=== PATIENT | male | born 1960 | race Caucasian/White ===

== ENCOUNTER 2016-10-10 22:04 | Emergency (ER) | payer OTHER ==
[~2016-10-10] VITALS: Ht 172.7 cm; Wt 50.9 kg
[~2016-10-10 22:04] MED LIST: ABILIFY15 MG OR; AMOXICILLIN500 M1 OR; ANTIVERT OR; ANTIVERT PO; BACTRIM DS1 TAB OR; BL VIT B-12500 MCG PO; CEPHALEXIN500 MG PO; CLONAZEP ODT1 MG OR; DILANTIN100 MG OR; DILANTIN100 MG PO; EC ASPIRIN325 MG OR; FLUOXETINE20 MG OR; FOLIC ACID1 M1 PO; FOLIC ACID1 MG PO; IPRATROPIU0.5 MG/3 M NEB; K-TAB20 MEQ PO; MAGNESIUM250 M1 PO; MOTRIN800 MG PO; PERCOCET 5/325M1 TAB OR; POTASSIUM CHLO20 ME1 PO; PREDNISONE10 MG PO; PREVACID30 M2 PO; PROAIR HFA IN; PROZAC10 MG PO; PROZAC20 MG PO; REGLAN10 MG OR; REMERON15 MG PO; RISPERIDONE2 MG PO; SPIRIVA IN; TAB-A-VITE W/1 COMBO PO; THIAMINE HCL100 MG PO; VERAPAMIL120 MG OR; VERAPAMIL40 MG OR; VISTARIL25 MG OR; VISTARIL50 MG PO; ZITHROMAX250 MG PO; ZYPREXA OR; ZYPREXA ZYDI20 MG OR
[2016-10-10 23:02] LABS: HEMATOCRIT 36.1 % (39.0-50.0); HEMOGLOBIN 12.7 g/dl (14.0-18.0); IMMATURE GRANULOCYTES 0.9 % (0.0-1.0); MEAN CELL VOLUME 91.4 fL CALC (80.0-100.0); MEAN CORPUSCULAR HGB 32.2 pG CALC (26.0-32.0); MEAN CORPUSCULAR HGB CONC 35.2 g/L CALC (32.0-36.0); NEUT# 3.81 thou/uL (1.82-7.42); RED BLOOD COUNT 3.95 mill/uL (4.70-6.10); RED CELL DISTRI WIDTH 13.4 % (11.5-15.5)
[2016-10-10 23:08] LABS: ALBUMIN 3.6 g/dL (3.2-5.0); ALKALINE PHOSPHATASE 73 u/l (38-126); ANION GAP 20 (6-22 (CALC)); BILIRUBIN, TOTAL 0.5 mg/dL (0.0-1.4); BUN 5 mg/dL (9-20); BUN/CREATININE RATIO 7 (12-20 (CALC)); CARBON DIOXIDE 19 mmol/l (22-30); CHLORIDE 96 mmol/l (95-108); CREATININE 0.6 mg/dL (0.7-1.3); ETHYL ALCOHOL 248 mg/dl (0-30); GFR > 60 ML/MIN (>=60 (CALC)); GFR FOR AFR.AMER. > 60 ML/MIN (>=60 (CALC)); GLUCOSE 87 mg/dL (75-110); POTASSIUM 3.2 mmol/l (3.5-5.1); SGOT/AST 45 u/l (17-59); SGPT/ALT 34 u/l (21-72); SODIUM 132 mmol/l (137-146); TOTAL PROTEIN 6.5 g/dL (6.3-8.2)
[2016-10-11 01:06] LABS: URINE BILIRUBIN - DIPSTICK NEGATIVE (NEGATIVE); URINE BLOOD DIPSTICK NEGATIVE (NEGATIVE); URINE CLARITY SLIGHT CLOUDY; URINE COLOR YELLOW; URINE GLUCOSE - DIPSTICK NEGATIVE (NEGATIVE); URINE KETONE NEGATIVE (NEGATIVE); URINE LEUK ESTERASE NEGATIVE (NEGATIVE); URINE NITRITE - DIPSTICK NEGATIVE (Negative); URINE PROTEIN - DIPSTICK NEGATIVE (NEG-TRACE); URINE SPECIFIC GRAVITY <=1.005; URINE UROBILINOGEN - DIPSTICK 0.2 E.U./dL (0.2)
[2016-10-11 01:11] LABS: BARBITURATES NEGATIVE (NEGATIVE); COCAINE NEGATIVE (NEGATIVE); METHADONE NEGATIVE (NEGATIVE); OXCYCODONE NEGATIVE (NEGATIVE); TETRAHYDROCANNABIONOL NEGATIVE (NEGATIVE); TRICYLIC ANTIDEPRESSANTS NEGATIVE (NEGATIVE)
[2016-10-11] MEDS ORDERED: NAPROSYN500 MG PO (06:51)
[2016-10-11 08:28] VITALS: BP 107/68
== END 2016-10-11 08:28 | disposition home or self-care (01) | DRG 897 ==
LOC: ED 22:04
PROVIDERS: Emergency Medicine
DX: F10.229 Alcohol dependence with intoxication, unspecified (principal); D32.9 Benign neoplasm of meninges, unspecified; Y90.8 Blood alcohol level of 240 mg/100 ml or more; F17.210 Nicotine dependence, cigarettes, uncomplicated; W18.30XA Fall on same level, unspecified, initial encounter; Y92.009 Unspecified place in unspecified non-institutional (private) residence as the place of occurrence of the external cause

== ENCOUNTER 2017-01-13 06:42 | Inpatient (IN) | payer OTHER ==
[~2017-01-13] VITALS: Ht 172.7 cm; Wt 54.4 kg
[~2017-01-13 06:42] MED LIST changes: +NAPROSYN500 MG PO
--- NOTE | 2017-01-13 06:42 | NUR ---
PT TO ROOM 13 VIA EMS. REPOSITIONS SELF ANSWERS QUESTIONS APPROPRIATELY. VSS.
[2017-01-13 07:13] LABS: HEMOGLOBIN 13.2 g/dl (14.0-18.0); MEAN CELL VOLUME 91.8 fL CALC (80.0-100.0); MEAN CORPUSCULAR HGB 31.9 pG CALC (26.0-32.0); MEAN CORPUSCULAR HGB CONC 34.7 g/L CALC (32.0-36.0); NEUT# 5.02 thou/uL (1.82-7.42); RED BLOOD COUNT 4.14 mill/uL (4.70-6.10); RED CELL DISTRI WIDTH 13.3 % (11.5-15.5)
[2017-01-13 07:34] LABS: ALBUMIN 3.8 g/dL (3.2-5.0); ALKALINE PHOSPHATASE 75 u/l (38-126); ANION GAP 17 (6-22 (CALC)); BILIRUBIN, TOTAL 1.2 mg/dL (0.0-1.4); BUN 3 mg/dL (9-20); BUN/CREATININE RATIO 6 (12-20 (CALC)); CARBON DIOXIDE 22 mmol/l (22-30); CHLORIDE 90 mmol/l (95-108); CREATININE 0.5 mg/dL (0.7-1.3); GFR > 60 ML/MIN (>=60 (CALC)); GFR FOR AFR.AMER. > 60 ML/MIN (>=60 (CALC)); GLUCOSE 117 mg/dL (75-110); POTASSIUM 3.5 mmol/l (3.5-5.1); SGOT/AST 43 u/l (17-59); SGPT/ALT 42 u/l (21-72); SODIUM 125 mmol/l (137-146); TOTAL PROTEIN 6.4 g/dL (6.3-8.2)
[2017-01-13 07:36] LABS: ETHYL ALCOHOL < 10 mg/dl (0-30)
--- NOTE | 2017-01-13 07:40 | NUR ---
PATIENT RESTING DENIES ANY PAIN OR DISCOMFORT AT THIS TIME. PATIENT HAS NO SEIZURE LIKE ACTIVITY AT THIS TIME
[2017-01-13 07:45] LABS: MYOGLOBIN 168 ng/mL (0 - 121)
[2017-01-13 08:23] LABS: PHENYTOIN (DILANTIN) < 3 ug/mL (10 - 20)
--- NOTE | 2017-01-13 08:40 | NUR ---
PATIENT RESTING AWAITING LAB RESULTS PATIENT DENIES ANY PAIN OR DISCOMFORT AT THIS TIME
[2017-01-13 08:47] LABS: URINE BILIRUBIN - DIPSTICK NEGATIVE (NEGATIVE); URINE BLOOD DIPSTICK NEGATIVE (NEGATIVE); URINE CLARITY CLEAR; URINE COLOR YELLOW; URINE GLUCOSE - DIPSTICK NEGATIVE (NEGATIVE); URINE KETONE TRACE mg/dL (NEGATIVE); URINE LEUK ESTERASE NEGATIVE (NEGATIVE); URINE NITRITE - DIPSTICK NEGATIVE (Negative); URINE PH 7.5 (4.5-8.0); URINE PROTEIN - DIPSTICK NEGATIVE (NEG-TRACE); URINE UROBILINOGEN - DIPSTICK 0.2 E.U./dL (0.2)
[2017-01-13 08:49] LABS: BARBITURATES NEGATIVE (NEGATIVE); COCAINE NEGATIVE (NEGATIVE); METHADONE NEGATIVE (NEGATIVE); OXCYCODONE NEGATIVE (NEGATIVE); TETRAHYDROCANNABIONOL NEGATIVE (NEGATIVE); TRICYLIC ANTIDEPRESSANTS NEGATIVE (NEGATIVE)
--- NOTE | 2017-01-13 09:04 | NUR ---
UNABLE TO SCAN MEDICATIONS NO BAR CODE FROM MEDICATION MIXED FROM PHARMACY. REPORT CALLED TO MED SURG
--- NOTE | 2017-01-13 09:15 | NUR ---
PT ARRIVED VIA STRETCHER ACCOMPANIED BY STAFF. IV SITE WAS IN PLACE. PT WAS INSTRUCTED NOT TO GET OUT OF BED, CONTINUE TO OSBERVE AND MONITOR. PT WAS IN RM 263 AND THEN WAS MOVED TO RM 270 AT 11AM DUE TO GETTING OUT OF BED,
--- NOTE | 2017-01-13 11:00 | NUR ---
PT WAS MOVED TO ROOM 270 VIA BED WITH IV SITE IN PLACE. ALL BELONGINGS.
[2017-01-13 12:00] VITALS: BP 118/79
--- NOTE | 2017-01-13 14:14 | NUR ---
PT ATTEMPTS TO GET OUT OF BED REINFORMED TO GO BACK IN THE BED. IV SITE BECAME UNDONE AND REPLACED/ CONTINUE TO OBSERVE AND MONITOR.
--- NOTE | 2017-01-13 16:02 | NUR ---
FRIEND LORI WANTING TO CHECK ON PT. INFORMED HE WAS STABLE AND IN THE BED. AND HE WAS ASKING FOR THE CIGARS "SHE STARTED TO LAUGH".
[2017-01-13 16:48] VITALS: BP 87/57
--- NOTE | 2017-01-13 17:30 | NUR ---
PT'S BED ALARM HAD BEEN ON. PT WAS RELAXING IN BED. ALL OF A SUDDEN HEARD A NOISE COMING FROM THE ROOM. WENT TO CHECK ON PT, HE HAD PULLED THE DOOR OFF THE CABINET TO THE TV LOOKING FOR THE REFRIGERATOR, AND HIS IV LINE WAS BROKE APART. IV NEEDED TO BE CHANGED. DR. VILLAFUERTE ON THE UNIT INFORMED AT THAT TIME. UPON INSPECTION BACK OF HIS LEGS ARE PINK AND WAS ESCORTED TO GET A SHOWER TO GET THE BLOOD OFF.
--- NOTE | 2017-01-13 18:00 | NUR ---
NEW IV SITE PLACED IN LFA WITH 1 ATTEMPT AND PT TOLERATED WELL. INQUIRING IF I HAVE ANY MONEY, OR A CIGARETTE. INFORMED THAT HE WAS IN THE HOSPITAL AND NO SMOKING ALSO NO MONEY.
--- NOTE | 2017-01-13 18:00 | NUR ---
PT GOT OUT OF BED AND THE ALARM WENT OFF, IV SITE WAS PULLED OUT AT 1830 CONTINUE TO OBSERVE AND MONITOR.
--- NOTE | 2017-01-13 18:30 | NUR ---
ALARM ON THE BED AND PT GOT OUT OF BED PULLING IV OUT. RETAKEN BACK TO BED AND EXPLAINED TO PT RE: NOT GETTING OUT OF BED AND THAT IV WAS OUT WILL NEED TO RESTART IV. INFORMED DR. VILLAFUERTE RE: IV OUT , WILL RESTART. INFORMED LIQUEFIED [employer] OPERATOR.
--- NOTE | 2017-01-13 19:15 | NUR ---
PT CONTINUES TO SIT UP IN THE BED AND WANTING A CIGARETTE AND MONEY TO GET HIS SMOKES. ALSO ASKING IF WE HAD HIS CERTIFICATE, WALLET AND CLOTHING. INFORMED THAT THE CLOTHES ARE IN A BAG , HAVE NOT CHECKED TO SEE IF THE WALLET WAS IN THERE OR NOT. REINSTRUCTED PT USE OF CALL CRAWFORD SYSTEM. CONTINUE TO OSBERVE AND MONITOR.
--- NOTE | 2017-01-13 19:30 | NUR ---
PATIENT IN BED AT THIS TIME-RESTLESS AND TRYING TO GET OOB. SITTER AT BEDSIDE FOR PATIENT SAFETY. PATIENT WITHOUT ANY IV ACCESS AT THIS TIME. WILL RESTART IV SITE PAYTON. SEIZURE PRECAUTIONS IN PLPACE AND SIDERAILS ARE PADDED. CALL LIGHT IN REACH. WILL CONT TO MONITOR.
--- NOTE | 2017-01-13 20:20 | NUR ---
NEW IV SITE TO RIGHT FOREARM-#[id number] WITH GOOD BLOOD RETURN. PATIENT CONT TO BE EXTREMELY RESTLESS AND APPEARS TO BE HALLUCINATING GRABBING AT THINGS IN THE AIR THAT ARE NOT THERE. PATIENT IS ORIENTED TO PERSON ONLY AT THIS TIME. DOES NOT KNOW WHERE HE IS OR WHY. ATTEMPTED TO REORIENT THE PATIENT WITH LITTLE SUCCESS. PATIENT MEDICATED WITH ATIVAN 1MG IVP ORDERED. PATIENT INCONT OF BOWEL AND BLADDER. PATIENT WITH LARGE RED SWOLLEN AREA TO LEFT BUTTOCKS. AREA IS NOT DRAINING. PHOTO TAkEN AND PLACED IN CHART. SITTER AT BEDSIDE FOR PATIENT SAFETY. CALL LIGHT IN REACH. WILL CONT TO MONITOR.
[2017-01-13 20:34] VITALS: BP 95/58
--- NOTE | 2017-01-13 23:00 | NUR ---
PATIENT CONT TO BE CONFUSED AND RESTLESS-STILL PICKING AT THE AIR AND WANTING TO GO TO THE STORE. INCONT OF BOWEL AND BLADDER AGAIN. PERICARE DONE WITH SOAP AND H20 AND LINENS CHANGED. SITTER REMAINS AT BEDSIDE FOR PATIENT SAFETY. WILL CONT TO MONITOR.
[2017-01-13 23:48] VITALS: BP 100/65
--- NOTE | 2017-01-14 00:02 | NUR ---
NEW IV SITE STARTED TO RIGHT WRIST-GOOD BLOOD RETURN. EMS SITE D/C. TURNED AND REPOSITIONED ON SIDE. CALL LIGHT IN REACH. WILL CONT TO MONITOR.
--- NOTE | 2017-01-14 02:25 | NUR ---
PATIENT CONTINUES TO BE AGITATED AND PULLING AT RAILS AND THRASHING IN BED. CONT TO WANT TO SMOKING AND "GO PAY THE WATER BI;;". ATTEMPTED TO REORIENT PATIENT WITH LITTLE SUCCESS. PATIENT MEDICATED WITH ATIVAN 1MG IVP ORDERED. PATIENT CONT TO BE INCONT OF BOWEL AND BLADDERX3 SO FAR TONIGHT. SITTER AT BEDSIDE FOR PATIENT SAFETY. WILL CONT TO MONITOR.
[2017-01-14 04:00] VITALS: BP 116/79
--- NOTE | 2017-01-14 04:30 | NUR ---
PATIENT HAS BEEN LESS AGITATED SINCE LAST MEDS GIVEN. STILL IS SLIGHT RESTLESS BUT NOT BAD EARLIER. SITTER REMAINS AT BEDSIDE. SEIZURE PRECAUTIONS IN PLACE WITH PADDED RAILS. NO SIEZURE ACTIVITY NOTED AT THIS TIME. CALL LIGHT AND BED ALARM IN PLACE. WILL CONT TO MONITOR.
[2017-01-14 05:58] LABS: HEMATOCRIT 34.7 % (39.0-50.0); HEMOGLOBIN 12.1 g/dl (14.0-18.0); IMMATURE GRANULOCYTES 0.8 % (0.0-1.0); MEAN CORPUSCULAR HGB 32.4 pG CALC (26.0-32.0); MEAN CORPUSCULAR HGB CONC 34.9 g/L CALC (32.0-36.0); NEUT# 2.92 thou/uL (1.82-7.42); RED BLOOD COUNT 3.73 mill/uL (4.70-6.10); RED CELL DISTRI WIDTH 13.2 % (11.5-15.5)
[2017-01-14 06:09] LABS: ALKALINE PHOSPHATASE 64 u/l (38-126); ANION GAP 11 (6-22 (CALC)); BILIRUBIN, TOTAL 0.9 mg/dL (0.0-1.4); BUN < 2 mg/dL (9-20); CALCIUM 8.5 mg/dL (8.4-10.2); CARBON DIOXIDE 24 mmol/l (22-30); CHLORIDE 97 mmol/l (95-108); CREATININE 0.4 mg/dL (0.7-1.3); GFR > 60 ML/MIN (>=60 (CALC)); GFR FOR AFR.AMER. > 60 ML/MIN (>=60 (CALC)); GLUCOSE 94 mg/dL (75-110); POTASSIUM 2.8 mmol/l (3.5-5.1); SGOT/AST 36 u/l (17-59); SGPT/ALT 34 u/l (21-72); SODIUM 130 mmol/l (137-146); TOTAL PROTEIN 5.6 g/dL (6.3-8.2)
[2017-01-14 08:05] VITALS: BP 90/56
--- NOTE | 2017-01-14 08:34 | NUR ---
PT.IN BED BEING CLEANED OF BM INCONTINENCE AT THIS TIME,ASSISTED TO BSC AND CLEANED W/BEDDING CHANGE. PT.CLEANED OF LARGE, LOOSE YELLOW BM AND 480CC OF CLEAR YELLOW URINE. V/S ASSESSED AND PT.MORNING MEDICATIONS ADMINISTERED. PT.BACK TO BED. OFFERED BREAKFAST, STATED HE "IS NOT HUNGRY." AID IS W/PT.AND GOING TO TRY AND HELP HIM EAT. PT.CONFUSED, ONLY ALERT TO SELF. INTAKE OF ONE COMPLETE APPLE JUICE WHILE TAKING MEDICATIONS
--- NOTE | 2017-01-14 13:39 | NUR ---
PT.MEDICATED W/MEDICATIONS ORDERED AND IV FLUIDS CHANGED ORDERED; SITTER AT BS, ASSISTED BOOSTING PT., AID IS FEEDING PT.APPLE SAUCE AT THIS TIME
--- NOTE | 2017-01-14 14:15 | NUR ---
PT.SLEEPING AT THIS TIME, IV FLUIDS CHANGED ORDERED AND PT.MEDICATED W/MEDICATIONS ORDERS PROVIDE; SITTER AT BEDSIDE; IV FLUSHED AND PT.REPOSITIONED AND PROVIDED PO WATER
[2017-01-14 15:37] VITALS: BP 103/70
--- NOTE | 2017-01-14 15:50 | NUR ---
PT.IS UPRIGHT IN BED AT THIS TIME EATING HIS MEAL, SITTER IS ASSISTING PT.EAT
--- NOTE | 2017-01-14 16:43 | NUR ---
PT AGREED FOR ME TO SHAVE HIS FACE.
--- NOTE | 2017-01-14 16:53 | NUR ---
PT.IS TRYING TO GET OUT OF BED, WANTING TO GO HOME, WANTING A CIGARETTE, STARTING TO TUG AT IV TUBING. TUBING IS TAPED WELL AND WRAPPED UP ARM TO PRTECT. PT.MEDICATED W/LIBRIUM AT THIS TIME AND BEING OFFERED A SNACK
--- NOTE | 2017-01-14 20:00 | NUR ---
PATIENT CONT TO BE RESTLESS AND MOVING ABOUT THE BED. CONT TO BE ORIENTED TO PERSON ONLY. PATIENT ATTEMPTING TO CLIMB OVER THE SIDERAILS THAT ARE PADDED FOR SEIZURE PRECAUTIONS. NO SEIZURE ACTIVITY HAS BEEN NOTED BUT PATIENT IS AGITATED AND WANTS A CIGARETTE ALONG WITH ALOT OF OTHER INAPPROPRIATE REQESTS. WANTS TO GO HOME AND WANTS TO PAY THE WATER BILL ECT. SEVERAL ATTEMPTS MADE TO TRY TO REORIENT PATIENT WITH NO SUCCESS. SITTER IS AT BEDSIDE FOR PATIENT SAFETY. PATIENT WITH IV SITE TO RIGHT FOREARM WITH IVF NS WITH 20MEQ KCL IN PROGRESS AT 100CC/HR. SITE APPEARS HEALTHY AT THIS TIME. PATIENT CONT TO LARGE RED SWOLLEN AREA TO LEFT BUTTOCK-APPEARS PAINFUL AND PATIENT DOES TRY TO POSITION HIMSELF OFF OF IT. NO DRAINAGE AT THIS TIME. CALL LIGHT IN REACH. WILL CONT TO MONITOR.
[2017-01-14 20:11] VITALS: BP 112/76
--- NOTE | 2017-01-14 21:00 | NUR ---
PATIENT CONT TO BE RESTLESS AND AGITATED-THRASHING ABOUT IN THE BED. INCONT OF URINE. LINENS CHANGED. PATIENT MEDICATED WITH DILANTIN AND VIBRAMYCIN ORDERED. PATIENT MEDICATED FOR AGITATION WITH ATIVAN 1MG IVP ORDERED. SITTER AT BEDSIDE. CALL LIGHT IN REACH. WILL CONT TO MONITOR.
[2017-01-14 23:47] VITALS: BP 126/82
--- NOTE | 2017-01-15 | NUR ---
PATIENT CONT TO BE RESTLESS. MEDICATED WITH LIBRIUM ORDERD. LEFT BUTTOCKS WOUND IS NOW DRAINING MODERATE AMT OF THICK SEROPURULENT FOUL SMELLING DRAINAGE. WOUND CULTURE OBTAINED AND SENT TO LAB. DRESSING APPLIED-TELFA COVERED WITH 4X4 AND SECURED WITH PAPER TAPE. SITTER REMAINS AT BEDSIDE. WILL CONT TO MONITOR.
--- NOTE | 2017-01-15 03:35 | NUR ---
MONITORING PATIENT AT BEDSIDE. CONT TO BE CONFUSED AND ATTEMPTING TO GET OOB. ASKING FOR CIGARETTES AMD WANTS TO GO HOME. PATIENT ASSISTED WITH 1 CONTAINER OF ICE CREAM AND DRANK APPROX 1/2 GLASS OF H20. STILL IS RESTLESS. ATTEMPT TO REORIENT PATIENT WITH LITTLE SUCCESS. STILL ORIENTED TO ERSON ONLY. SIDE RAILS PADDED AND SEIZURE PRECAUTIONS IN PLACE. PATIENT STATES THAT HE HAD TO "PEE' ASSISTED WITH URINAL AND VOIDED 100CC OF KHADAR URINE. REMAINING AT BEDSIDE FOR PATIENT SAFETY. CALL LIGHT IN REACH. WILL CONT TO MONITOR.
--- NOTE | 2017-01-15 05:31 | NUR ---
PATIENT SLEEPING AT THIS TIME WITH STAFF AT BEDSIDE FOR PATIENT SAFETY. SIDERAILS PADDED FOR SEIZURE PRECAUTIONS. NO SIEZURE ACTIVITY NOTED TONIGHT. WILL CONT TO MONITOR.
[2017-01-15 05:56] LABS: ANION GAP 11 (6-22 (CALC)); BUN 2 mg/dL (9-20); BUN/CREATININE RATIO 5 (12-20 (CALC)); CARBON DIOXIDE 24 mmol/l (22-30); CHLORIDE 100 mmol/l (95-108); CREATININE 0.4 mg/dL (0.7-1.3); GFR > 60 ML/MIN (>=60 (CALC)); GFR FOR AFR.AMER. > 60 ML/MIN (>=60 (CALC)); GLUCOSE 86 mg/dL (75-110); POTASSIUM 3.4 mmol/l (3.5-5.1); SODIUM 131 mmol/l (137-146)
--- NOTE | 2017-01-15 09:15 | NUR ---
ASSESSMENT IS COMPLTED: PT HAS AN ODOR. DRESSING ON BUTTOCK IS CDI. IV SITE WAS WORKIGN WITH OUT ANY INCIDENT. CONTINUE TO OSBERVE AND MONITOR.
--- NOTE | 2017-01-15 10:00 | NUR ---
PT BEGAN TAKING OFF ARM BAND. THEN IV SITE WAS RECHECKED AND HAD SOME PUFFINESS AT THE SITE. D/C'D WILL RESTART.
[2017-01-15 10:52] VITALS: BP 114/72
--- NOTE | 2017-01-15 12:30 | NUR ---
ATTEMPTED TO START IV AND IT SWELLED. WILL RETRY AGAIN. IV SITE THEN STARTED BY KIRIT SCHUSTER. IN LFA WITH #20. CONTINUE TO OBSERVE AND MONITOR.
[2017-01-15 15:47] VITALS: BP 100/60; BP 90/60
--- NOTE | 2017-01-15 16:15 | NUR ---
PT IS RELAXING IN BED WITH NO DISTRESS NOTED, IV SITE IS FREE FROM REDNESS OR EDEMA
[2017-01-15 18:08] VITALS: BP 96/52
[2017-01-15 19:00] VITALS: BP 103/72
--- NOTE | 2017-01-15 19:30 | NUR ---
PATIENT RESTING IN BED IN POSITION AND APPEARS SLEEPING AT THIS TIME WITH EYES CLOSED. IVF NS 20 KCL PATENT AND INFUSING AT 100CC/HR ORDERED. IV SITE TO LEFT FOREARM APPEARS HEALTHY AT THIS TIME. SIDERAILS PADDED FOR SEIZURE PRECAUTIONS. BED ALARM IN PLACE FOR PATIENT SAFETY. CALL LIGHT IN REACH. WILL CONT TO MONITOR
[2017-01-16] VITALS: BP 88/54
--- NOTE | 2017-01-16 | NUR ---
PATIENT CONT TO SLEEPING AT THIS TIME. PATIENT HAS NOT ATTEMPTED TO GET OOB YET TONIGHT. BED ALARM IN PLACE FOR PATIENT SAFETY. LIBRIUM HELD DUE TO LOC. CALL LIGHT IN REACH. WILL CONT TO MONITOR.
[2017-01-16 04:15] VITALS: BP 113/77
--- NOTE | 2017-01-16 04:30 | NUR ---
PATIENT AWAKE AND ALERT AND ORIENTED TO PERSON AND PLACE. PATIENT KNOWS HE IS AT [facility] AND THAT HE NEEDS HIS DILANTIN TO PREVENT HIM FROM HAVING SEIZURES. PATIENT REASSURED THAT HE WAS GETTING HIS DILANTIN HERE AT THE HOSPITAL. PATIENT MIN ASSIST TO GET OOB AND AMB WITH WALKER TO BR FOR SHOWER. PATIENT ASSISTED WITH SHOWER AND SHAMPOOING HIS HAIR. ABCESS TO LEFT BUTTOCK IS DRAINING SMALL AMT OF SEROPURULENT FOUL SMELLING DRAINAGE. SURROUNDING AREA IS PAINFUL. PATIENT ASSISTED BACK TO BED-FOLLOWING DIRECTIONS APPROPRIATELY. PHOTO OF LEFT BUTTOCKS WOUND TAKEN AND PLACED IN CHART. TELFA AND 4X4 DRESSING APPLIED TO LEFT BUTTOCKS AND SECURED WITH PAPER TAPE. PATIENT RESTING IN BED POSITIONED ON HIS SIDE. BED ALARM IN PLACE FOR PATIENT SAFETY. CALL LIGHT IN REACH. WILL CONT TO MONITOR.
[2017-01-16 05:44] LABS: HEMATOCRIT 38.6 % (39.0-50.0); HEMOGLOBIN 12.8 g/dl (14.0-18.0); MEAN CELL VOLUME 93.9 fL CALC (80.0-100.0); MEAN CORPUSCULAR HGB 31.1 pG CALC (26.0-32.0); MEAN CORPUSCULAR HGB CONC 33.2 g/L CALC (32.0-36.0); NEUT# 2.82 thou/uL (1.82-7.42); RED BLOOD COUNT 4.11 mill/uL (4.70-6.10); RED CELL DISTRI WIDTH 13.4 % (11.5-15.5)
[2017-01-16 06:02] LABS: ANION GAP 11 (6-22 (CALC)); BUN 5 mg/dL (9-20); BUN/CREATININE RATIO 10 (12-20 (CALC)); CARBON DIOXIDE 23 mmol/l (22-30); CHLORIDE 102 mmol/l (95-108); CREATININE 0.5 mg/dL (0.7-1.3); GFR > 60 ML/MIN (>=60 (CALC)); GFR FOR AFR.AMER. > 60 ML/MIN (>=60 (CALC)); GLUCOSE 83 mg/dL (75-110); POTASSIUM 3.9 mmol/l (3.5-5.1); SODIUM 133 mmol/l (137-146)
[2017-01-16 08:20] VITALS: BP 90/60
--- NOTE | 2017-01-16 08:20 | NUR ---
ASSESSMENT IS COMPLTED: IV SITE IS FREE FROM REDNESS OR EDEMA. DRESSING ON LEFT BUTTOCK IS CDI. CONTINUE TO OSEBRVE AND MONITOR.
--- NOTE | 2017-01-16 12:15 | NUR ---
PT IS LAYING IN BED FAMILY FRIEND IN TO VISIT WITH PT. CONTINUE TO WILIAN. IV SITE IS FREE FROM REDNES OR EDEMA
--- NOTE | 2017-01-16 15:10 | NUR ---
Patient refused to participate with physical therapy this PM, nurse informed.
[2017-01-16 15:48] VITALS: BP 93/59
--- NOTE | 2017-01-16 16:15 | NUR ---
PT IS RELAXING IN BED
--- NOTE | 2017-01-16 18:31 | NUR ---
SPOKE WITH PT RE: DR MYERS IN TO VISIT WITH PT TOMORROW AND WANTING TO DO AN INCISION AND DRAINAGE ON HIS BUTTOCK TOMORROW. PT STATED" IT'S OK LONG HE WILL GIVE ME NUMBING MEDICATIONS".
--- NOTE | 2017-01-16 20:00 | NUR ---
PATIENT RESTING IN BED AT THIS TIME-APPEARS SLEEPING ON HIS SIDE. HEP LOCK TO LEFT FOREARM INTACT AND APPEARS HEALTHY AT THIS TIME. BED ALARM IN PLACE FOR PATIENT SAFETY. CALL LIGHT IN REACH. WILL CONT TO MONITOR.
[2017-01-16 20:07] VITALS: BP 104/60
--- NOTE | 2017-01-16 22:00 | NUR ---
BED ALARM GOING OFF-GETTING OOB-VERY UNSTEADY ON HIS FEET. ASSISTED BACK TO BED. PATIENT IS SLOW BUT ORIENTED TO PERSON ABND PLACE. PATIENT MEDICATED ORDERED WITH VIBRAMYCIN AND DILANTIN. NICOTENE PATCH APPLIED. MAGNESIUM SULFATE IV ORDERED VIA LEFT FOREARM. SITTER AT BEDSIDE FOR PATIENT SAFETY AT THIS TIME. BED ALARM IN PLACE FOR PATIENT SAFETY. WILL CONT TO MONITOR.
--- NOTE | 2017-01-17 | NUR ---
PATIENT RESTING IN BED APPEARS SLEEPING AT THIS TIME. BED ALARM IN PLACE FOR PATIENT SAFETY. CALL LIGHT IN REACH. WILL CONT TO MONITOR.
[2017-01-17 00:13] VITALS: BP 96/65
--- NOTE | 2017-01-17 02:00 | NUR ---
BED ALARM GOING OFF AND STAFF RESPONDED TO ROOM. PATIENT ATTEMPTING TO GET OOB. ASSISTED BACK TO BED. MAG SULFATE FINISHED. BED ALARM INPLACE AND CALL LIGHT IN REACH. WILL CONT TO MONITOR.
[2017-01-17 04:49] VITALS: BP 110/77
--- NOTE | 2017-01-17 05:42 | NUR ---
PATIENT APPEARS SLEEPING AT THIS TIME. BED ALARM INPLACE FOR PATIENT SAFETY. SEIZURE PRECAUTIONS WITH SIDERAILS PADDED. NO SEIZURE ACTIVITY NOTED TONIGHT. CALL LIGHT IN REACH. WILLCONT TO MONITOR.
[2017-01-17 06:24] LABS: ANION GAP 12 (6-22 (CALC)); BUN 7 mg/dL (9-20); BUN/CREATININE RATIO 13 (12-20 (CALC)); CALCIUM 8.5 mg/dL (8.4-10.2); CARBON DIOXIDE 25 mmol/l (22-30); CHLORIDE 101 mmol/l (95-108); CREATININE 0.6 mg/dL (0.7-1.3); GFR > 60 ML/MIN (>=60 (CALC)); GFR FOR AFR.AMER. > 60 ML/MIN (>=60 (CALC)); GLUCOSE 93 mg/dL (75-110); POTASSIUM 3.4 mmol/l (3.5-5.1); SODIUM 134 mmol/l (137-146)
[2017-01-17 07:30] VITALS: BP 101/70
--- NOTE | 2017-01-17 08:50 | NUR ---
PT RESTING WITH EYES CLOSED; AROUSED EASILY TO VERBAL STIMULI; PT WITH SLOW/SLURRED SPEECH; NO COMPLAINTS OF PAIN OR DISCOMFORT VOICED AT THIS TIME; DRSG TO LEFT BUTTOCK REMOVED, MODERATE AMOUNT OF SEROUSAGINOUS DRAINAGE NOTED; AREA CLEANED WITH NS; TELFA AND 4X4 APPLIED, SECURED WITH PAPER TAPE; PT TOLERATED WELL; CALL CRAWFORD WITHIN REACH; WILL CONTINUE TO MONITOR.
--- NOTE | 2017-01-17 09:31 | NUR ---
PHYSICAL THERAPY IN WITH PT
--- NOTE | 2017-01-17 10:10 | NUR ---
PT WAS SEEN SUPINE IN BED. PT WAS ABLE TO SIT UP WITH MIN A ON SCOOTING. SIT TO STAND WITH SBA FOR SAFETY. HE WAS UNSTABLE TO AMBULATE AT THIS TIME HIS BALANCE WAS IMPAIRED. DID MARCHES IN PLACE WITH A WALKER, AND SIT TO STAND, TOLERATED. COMPLAINED OF WOUND IN HIS BUTTOCK, SEEN BLOOD IN THE BED PAD. PT WAS ASSISTED BACK IN SUPINE WITH NO DISTRESS NOTED OR REPORTED. CALL CRAFWORD BESIDE HIM.
--- NOTE | 2017-01-17 11:50 | NUR ---
PT RESTING WITH EYES CLOSED; AROUSED EASILY TO VERBAL STIMULI; NO COMPLAINTS OR CONCERNS VOICED; BED ALARM IN PLACE; CALL CRAWFORD WITHIN REACH; WILL CONTINUE TO MONITOR.
--- NOTE | 2017-01-17 13:20 | NUR ---
I&D OF LEFT BUTTOCK DONE AT BEDSIDE BY DR. MYERS; PT TOLERATED FAIR; DRY DRSG APPLIED AND SECURED WITH PAPER TAPE; CALL CRAWFORD WITHIN REACH; WILL CONTINUE TO MONITOR.
[2017-01-17 15:31] VITALS: BP 110/73
--- NOTE | 2017-01-17 19:20 | NUR ---
pt awake; noted setting off bed alarm several times; easily reoriented; assessment completed; speech noted slurred and slow; alert and oriented x3 at present; follow commands; denies pain; no n/v noted; resp even and unlabored; ra; hr reg; strong pulses; abd soft with bs present; voiding/ urinal at bedside; pt noted with intermittent urinary incont; #20 in lfa flushed and patent; no redness or edema noted at site; scabs/abrasions noted to bilat wrist area/ pt states from fall; dressing cdi to left buttock/ no drainage noted; side rails padded/ seizure precautions; plan of care/pm meds explained; bed alarm intact for pt safety; call light within reach; will continue to monitor
[2017-01-17 19:35] VITALS: BP 112/74
--- NOTE | 2017-01-17 21:23 | NUR ---
awake; pm meds administered; no distress noted; will continue to monitor
--- NOTE | 2017-01-17 23:48 | NUR ---
asleep; easy to arouse; offers no complaints; iv intact; no distress noted; bed alarm active for pt safety; call light within reach; will continue to monitor
--- NOTE | 2017-01-18 03:48 | NUR ---
resting in bed with eyes closed; no distress noted; iv intact; bed alarm active for pt safety; call light within reach; will continue to monitor
[2017-01-18 04:43] VITALS: BP 114/77
[2017-01-18 05:21] LABS: HEMOGLOBIN 11.8 g/dl (14.0-18.0); IMMATURE GRANULOCYTES 1.4 % (0.0-1.0); MEAN CELL VOLUME 94.1 fL CALC (80.0-100.0); MEAN CORPUSCULAR HGB 31.7 pG CALC (26.0-32.0); MEAN CORPUSCULAR HGB CONC 33.7 g/L CALC (32.0-36.0); NEUT# 2.12 thou/uL (1.82-7.42); RED BLOOD COUNT 3.72 mill/uL (4.70-6.10); RED CELL DISTRI WIDTH 13.4 % (11.5-15.5)
--- NOTE | 2017-01-18 05:38 | NUR ---
awakened for am med; no distress noted; offers no complaints; iv intact; bed alarm for pt safety; call light within reach
[2017-01-18 05:44] LABS: ANION GAP 17 (6-22 (CALC)); BUN 10 mg/dL (9-20); BUN/CREATININE RATIO 21 (12-20 (CALC)); CALCIUM 8.8 mg/dL (8.4-10.2); CARBON DIOXIDE 19 mmol/l (22-30); CHLORIDE 101 mmol/l (95-108); CREATININE 0.5 mg/dL (0.7-1.3); GFR > 60 ML/MIN (>=60 (CALC)); GFR FOR AFR.AMER. > 60 ML/MIN (>=60 (CALC)); GLUCOSE 85 mg/dL (75-110); MAGNESIUM 1.3 mg/dL (1.6-2.3); POTASSIUM 3.9 mmol/l (3.5-5.1); SODIUM 134 mmol/l (137-146)
--- NOTE | 2017-01-18 07:00 | NUR ---
SHIFT CHANGE REPORT, PT SLEEPING AT THIS TIME BUT AROUSES TO VERVAL STIMULI, ORIENTED, DENIES PAIN AT THIS TIME, CALL CRAWFORD IN REACH.
--- NOTE | 2017-01-18 08:58 | NUR ---
PATIENT WAS SEEN AND TREATED TODAY. BED ALARM WAS ON. PATIENT REQUIRED CONTACT GUARD ASSIST WITH TRANSFERS AND AMBULATION. HE WALKED WITH GAIT BELT AND ROLLING WALKER. MILD UNCOORDINATION WAS NOTED WITH CIRCUMDUCTION OF THE LEFT LEG DURING THE SWING PHASE OF GAIT. HE PERFORMED 5 SIT TO STANDS AT BEDSIDE WITH CGA. PATIENT WAS ABLE TO LAY SUPINE INDEPENDENTLY. NO ADVERSE INCIDENTS HAPPENED.
[2017-01-18 09:19] VITALS: BP 91/64
--- NOTE | 2017-01-18 12:00 | NUR ---
SITTING UP IN BED HAVING MEAL, NO C/O DISCOMFORT AT THIS TIME, CALL BEEL IN REACH.
--- NOTE | 2017-01-18 16:17 | NUR ---
RESTING IN BED AT THIS TIME, ADVISED OF D/C PLANS, STATED HE DOES NOT WANT TO GO TO REHAB AND HE HAS A NICE NEW COMFORTABLE PLACE RIGHT NOW. ALSO STATED HE HAS NO MONEY OR MEANS OF TRANSPORTATION TO GO HOME, WILL CONTINUE TO MONITOR AND ADDRESS NEEDS.
[2017-01-18] MEDS ORDERED: DILANTIN100 MG PO (17:27)
[2017-01-18] MEDS ORDERED: DOXYCYC MONO100 M2 PO (17:27)
[2017-01-18] MEDS ORDERED: TAB-A-VITE W/1 COMBO PO (17:27)
[2017-01-18] MEDS ORDERED: FOLIC ACID1 M1 PO (17:27)
[2017-01-18] MEDS ORDERED: KEPPRA500 M2 PO (17:30)
--- NOTE | 2017-01-18 18:30 | NUR ---
ORDERS TO D/C WITH HOME HEALTH, MICHAEL ADVISED PT'S INSURANCE DOES NOT COVER OUR HH AND WILL CONTACT OTHER AGENCIES IN AM.
--- NOTE | 2017-01-18 21:57 | NUR ---
Discharge instructions given. Patient verbalizes understanding of same. Discharged in stable condition via Wheelchair to Home with *Other. All belongings sent with pt.
== END 2017-01-18 19:30 | disposition home health service (06) | DRG 100 ==
LOC: ENPENDDIS → ED 06:42 → ED-I 08:20 → ED 08:34 → MS2 08:35
PROVIDERS: Emergency Medicine; Internal Medicine; ADMIT Internal Medicine; ATTEND Internal Medicine
PROC: 0H98XZZ Drainage of Buttock Skin, External Approach (ICD-10-PCS; principal; 2017-01-17)
DX: G40.909 Epilepsy, unspecified, not intractable, without status epilepticus (principal); E43 Unspecified severe protein-calorie malnutrition; E87.8 Other disorders of electrolyte and fluid balance, not elsewhere classified; L02.31 Cutaneous abscess of buttock; Z68.1 Body mass index [BMI] 19.9 or less, adult; E87.1 Hypo-osmolality and hyponatremia; F10.239 Alcohol dependence with withdrawal, unspecified; L03.317 Cellulitis of buttock; E83.42 Hypomagnesemia; E86.0 Dehydration; F20.9 Schizophrenia, unspecified; F17.210 Nicotine dependence, cigarettes, uncomplicated; J44.9 Chronic obstructive pulmonary disease, unspecified; R01.1 Cardiac murmur, unspecified; F41.9 Anxiety disorder, unspecified; F32.9 Major depressive disorder, single episode, unspecified; I69.992 Facial weakness following unspecified cerebrovascular disease; Y90.0 Blood alcohol level of less than 20 mg/100 ml; Z59.0 Homelessness; Z91.14 Patient's other noncompliance with medication regimen
CPT/HCPCS: J2060; J3475

== ENCOUNTER 2017-03-05 11:53 | Emergency (ER) | payer OTHER ==
[~2017-03-05] VITALS: Ht 172.7 cm; Wt 70.0 kg
[~2017-03-05 11:53] MED LIST changes: +DOXYCYC MONO100 M2 PO; +KEPPRA500 M2 PO
[2017-03-05 12:22] LABS: HEMATOCRIT 42.1 % (39.0-50.0); HEMOGLOBIN 14.7 g/dl (14.0-18.0); IMMATURE GRANULOCYTES 0.3 % (0.0-1.0); MEAN CELL VOLUME 89.2 fL CALC (80.0-100.0); MEAN CORPUSCULAR HGB 31.1 pG CALC (26.0-32.0); MEAN CORPUSCULAR HGB CONC 34.9 g/L CALC (32.0-36.0); NEUT# 4.67 thou/uL (1.82-7.42); RED BLOOD COUNT 4.72 mill/uL (4.70-6.10); RED CELL DISTRI WIDTH 13.3 % (11.5-15.5)
[2017-03-05 12:39] LABS: ALBUMIN 4.3 g/dL (3.2-5.0); ALKALINE PHOSPHATASE 99 u/l (38-126); ANION GAP 21 (6-22 (CALC)); BILIRUBIN, TOTAL 1.3 mg/dL (0.0-1.4); BUN 4 mg/dL (9-20); BUN/CREATININE RATIO 7 (12-20 (CALC)); CALCIUM 9.4 mg/dL (8.4-10.2); CARBON DIOXIDE 20 mmol/l (22-30); CHLORIDE 93 mmol/l (95-108); CREATININE 0.6 mg/dL (0.7-1.3); ETHYL ALCOHOL 0 mg/dl (0-30); GFR > 60 ML/MIN (>=60 (CALC)); GFR FOR AFR.AMER. > 60 ML/MIN (>=60 (CALC)); GLUCOSE 167 mg/dL (75-110); POTASSIUM 3.7 mmol/l (3.5-5.1); SGOT/AST 44 u/l (17-59); SGPT/ALT 21 u/l (21-72); SODIUM 130 mmol/l (137-146); TOTAL PROTEIN 7.5 g/dL (6.3-8.2)
[2017-03-05 13:00] LABS: PHENYTOIN (DILANTIN) < 3 ug/mL (10 - 20)
[2017-03-05] MEDS ORDERED: FLUOXETINE20 MG PO (13:21)
[2017-03-05] MEDS ORDERED: DILANTIN100 MG PO (13:21)
[2017-03-05] MEDS ORDERED: DOXYCYCL HYC100 MG PO (13:22)
[2017-03-05 14:07] LABS: URINE BILIRUBIN - DIPSTICK NEGATIVE (NEGATIVE); URINE BLOOD DIPSTICK NEGATIVE (NEGATIVE); URINE CLARITY TURBID; URINE COLOR YELLOW; URINE GLUCOSE - DIPSTICK NEGATIVE (NEGATIVE); URINE KETONE TRACE mg/dL (NEGATIVE); URINE LEUK ESTERASE NEGATIVE (NEGATIVE); URINE NITRITE - DIPSTICK NEGATIVE (Negative); URINE PROTEIN - DIPSTICK 100 mg/dL (NEG-TRACE)
[2017-03-05 14:15] LABS: BARBITURATES NEGATIVE (NEGATIVE); COCAINE NEGATIVE (NEGATIVE); METHADONE NEGATIVE (NEGATIVE); OXCYCODONE NEGATIVE (NEGATIVE); TETRAHYDROCANNABIONOL NEGATIVE (NEGATIVE); TRICYLIC ANTIDEPRESSANTS NEGATIVE (NEGATIVE); URINE AMORPH SEDIMENT MANY hpf (NONE-FER); URINE BACTERIA FEW hpf; URINE COARSE GRANULAR CAST MODERATE lpf; URINE RBC 0-2 RBC/hpf (0-5); URINE SQUAMOUS EPITHELIAL CELL FEW EPI/hpf (0-FEW); URINE WBC 0-2 WBC/hpf (0-5)
[2017-03-05 16:14] VITALS: BP 137/84
== END 2017-03-05 17:50 | disposition home or self-care (01) | DRG 101 ==
LOC: ED 11:53
PROVIDERS: Emergency Medicine
DX: G40.409 Other generalized epilepsy and epileptic syndromes, not intractable, without status epilepticus (principal); F20.9 Schizophrenia, unspecified; F32.9 Major depressive disorder, single episode, unspecified; F41.9 Anxiety disorder, unspecified; R01.1 Cardiac murmur, unspecified; F17.210 Nicotine dependence, cigarettes, uncomplicated; Z91.14 Patient's other noncompliance with medication regimen
CPT/HCPCS: J1953; J2060

== ENCOUNTER 2018-02-13 13:43 | Emergency (ER) | payer OTHER ==
[~2018-02-13] VITALS: Ht 172.7 cm; Wt 52.0 kg
[~2018-02-13 13:43] MED LIST changes: +DOXYCYCL HYC100 MG PO; +FLUOXETINE20 MG PO
[2018-02-13 14:35] LABS: HEMATOCRIT 40.8 % (39.0-50.0); HEMOGLOBIN 14.2 g/dl (14.0-18.0); IMMATURE GRANULOCYTES 0.9 % (0.0-5.0); MEAN CELL VOLUME 91.9 fL CALC (80.0-100.0); MEAN CORPUSCULAR HGB CONC 34.8 g/L CALC (32.0-36.0); NEUT# 2.77 thou/uL (1.82-7.42); RED BLOOD COUNT 4.44 mill/uL (4.70-6.10); RED CELL DISTRI WIDTH 13.5 % (11.5-15.5)
[2018-02-13 14:42] LABS: ALBUMIN 3.8 g/dL (3.2-5.0); ALKALINE PHOSPHATASE 113 u/l (38-126); ANION GAP 19 (6-22 (CALC)); BILIRUBIN, TOTAL 0.6 mg/dL (0.0-1.4); BUN 4 mg/dL (9-20); BUN/CREATININE RATIO 7 (12-20 (CALC)); CARBON DIOXIDE 24 mmol/l (22-30); CHLORIDE 101 mmol/l (95-108); CREATININE 0.5 mg/dL (0.7-1.3); ETHYL ALCOHOL 124 mg/dl (0-30); GFR > 60 ML/MIN (>=60 (CALC)); GFR FOR AFR.AMER. > 60 ML/MIN (>=60 (CALC)); POTASSIUM 3.7 mmol/l (3.5-5.1); SGOT/AST 54 u/l (17-59); SGPT/ALT 40 u/l (21-72); SODIUM 140 mmol/l (137-146); TOTAL PROTEIN 6.9 g/dL (6.3-8.2)
[2018-02-13 14:53] LABS: MYOGLOBIN 36 ng/mL (0 - 121)
[2018-02-13] MEDS ORDERED: FLUOXETINE20 MG PO (16:26)
[2018-02-13] MEDS ORDERED: KEPPRA500 M2 PO (16:26)
[2018-02-13 16:49] VITALS: BP 140/84
== END 2018-02-13 17:03 | disposition home or self-care (01) ==
LOC: ED 13:43
PROVIDERS: Emergency Medicine
DX: R53.81 Other malaise (principal); F10.20 Alcohol dependence, uncomplicated; G40.909 Epilepsy, unspecified, not intractable, without status epilepticus; F20.9 Schizophrenia, unspecified; F41.9 Anxiety disorder, unspecified; F32.9 Major depressive disorder, single episode, unspecified; F17.210 Nicotine dependence, cigarettes, uncomplicated; I25.2 Old myocardial infarction; Z91.14 Patient's other noncompliance with medication regimen; Z59.1 Inadequate housing; Z86.73 Personal history of transient ischemic attack (TIA), and cerebral infarction without residual deficits
CPT/HCPCS: J1953

== ENCOUNTER 2018-03-05 19:49 | Emergency (ER) | payer OTHER ==
[~2018-03-05] VITALS: Ht 172.7 cm; Wt 60.0 kg
[2018-03-05 20:43] LABS: HEMATOCRIT 41.3 % (39.0-50.0); HEMOGLOBIN 14.6 g/dl (14.0-18.0); IMMATURE GRANULOCYTES 0.6 % (0.0-5.0); MEAN CELL VOLUME 91.8 fL CALC (80.0-100.0); MEAN CORPUSCULAR HGB 32.4 pG CALC (26.0-32.0); MEAN CORPUSCULAR HGB CONC 35.4 g/L CALC (32.0-36.0); NEUT# 2.38 thou/uL (1.82-7.42); RED BLOOD COUNT 4.5 mill/uL (4.70-6.10); RED CELL DISTRI WIDTH 13.7 % (11.5-15.5)
[2018-03-05 20:55] LABS: ALBUMIN 3.5 g/dL (3.2-5.0); ALKALINE PHOSPHATASE 122 u/l (38-126); ANION GAP 15 (6-22 (CALC)); BILIRUBIN, TOTAL 0.9 mg/dL (0.0-1.4); BUN 4 mg/dL (9-20); BUN/CREATININE RATIO 8 (12-20 (CALC)); CARBON DIOXIDE 25 mmol/l (22-30); CHLORIDE 99 mmol/l (95-108); CREATININE 0.5 mg/dL (0.7-1.3); ETHYL ALCOHOL 231 mg/dl (0-30); GFR > 60 ML/MIN (>=60 (CALC)); GFR FOR AFR.AMER. > 60 ML/MIN (>=60 (CALC)); POTASSIUM 3.5 mmol/l (3.5-5.1); SGPT/ALT 60 u/l (21-72); SODIUM 135 mmol/l (137-146); TOTAL PROTEIN 6.5 g/dL (6.3-8.2)
[2018-03-05 20:57] LABS: SGOT/AST 128 u/l (17-59)
[2018-03-05 23:58] LABS: URINE BILIRUBIN - DIPSTICK NEGATIVE (NEGATIVE); URINE BLOOD DIPSTICK NEGATIVE (NEGATIVE); URINE CLARITY CLOUDY; URINE COLOR YELLOW; URINE GLUCOSE - DIPSTICK NEGATIVE (NEGATIVE); URINE KETONE NEGATIVE (NEGATIVE); URINE LEUK ESTERASE NEGATIVE (NEGATIVE); URINE NITRITE - DIPSTICK POSITIVE (Negative); URINE PH 6.5 (4.5-8.0); URINE PROTEIN - DIPSTICK NEGATIVE (NEG-TRACE); URINE SPECIFIC GRAVITY <=1.005; URINE UROBILINOGEN - DIPSTICK 0.2 E.U./dL (0.2)
[2018-03-06 00:04] LABS: URINE BACTERIA MANY hpf; URINE RBC 0-2 RBC/hpf (0-5); URINE SQUAMOUS EPITHELIAL CELL FEW EPI/hpf (0-FEW)
[2018-03-06 00:05] LABS: BARBITURATES NEGATIVE (NEGATIVE); COCAINE NEGATIVE (NEGATIVE); METHADONE NEGATIVE (NEGATIVE); OXCYCODONE NEGATIVE (NEGATIVE); TETRAHYDROCANNABIONOL NEGATIVE (NEGATIVE); TRICYLIC ANTIDEPRESSANTS NEGATIVE (NEGATIVE)
[2018-03-06 05:15] VITALS: BP 113/66
== END 2018-03-06 05:42 | disposition home or self-care (01) ==
LOC: ED 19:49
PROVIDERS: Emergency Medicine
DX: F10.129 Alcohol abuse with intoxication, unspecified (principal); N39.0 Urinary tract infection, site not specified; F41.9 Anxiety disorder, unspecified; G40.909 Epilepsy, unspecified, not intractable, without status epilepticus; I25.2 Old myocardial infarction; F20.9 Schizophrenia, unspecified; F32.9 Major depressive disorder, single episode, unspecified; F17.210 Nicotine dependence, cigarettes, uncomplicated; B96.20 Unspecified Escherichia coli [E. coli] as the cause of diseases classified elsewhere; Z91.14 Patient's other noncompliance with medication regimen; Z86.73 Personal history of transient ischemic attack (TIA), and cerebral infarction without residual deficits

== ENCOUNTER 2021-02-18 11:07 | Emergency (ER) | payer OTHER ==
[~2021-02-18] VITALS: Ht 172.7 cm; Wt 72.7 kg
[2021-02-18 11:45] LABS: HEMATOCRIT 41.7 % (39.0-50.0); HEMOGLOBIN 14.3 g/dl (14.0-18.0); MEAN CELL VOLUME 90.7 fL CALC (80.0-100.0); MEAN CORPUSCULAR HGB 31.1 pG CALC (26.0-32.0); MEAN CORPUSCULAR HGB CONC 34.3 g/dL CAL (32.0-36.0); NEUT# 2.95 thou/uL (1.82-7.42); RED BLOOD COUNT 4.6 mill/uL (4.70-6.10); RED CELL DISTRI WIDTH 15.6 % (11.5-15.5)
[2021-02-18 11:46] LABS: URINE BILIRUBIN - DIPSTICK NEGATIVE (NEGATIVE); URINE BLOOD DIPSTICK NEGATIVE (NEGATIVE); URINE COLOR YELLOW; URINE GLUCOSE - DIPSTICK NEGATIVE (NEGATIVE); URINE KETONE TRACE mg/dL (NEGATIVE); URINE LEUK ESTERASE TRACE (NEGATIVE); URINE PROTEIN - DIPSTICK NEGATIVE (NEG-TRACE)
[2021-02-18 11:48] LABS: URINE NITRITE - DIPSTICK POSITIVE (Negative)
[2021-02-18 11:51] LABS: URINE BACTERIA MANY hpf; URINE SQUAMOUS EPITHELIAL CELL FEW EPI/hpf (0-FEW); URINE TRANSITIONAL EPI. CELLS FEW hpf; URINE WBC 0-2 WBC/hpf (0-5)
[2021-02-18 11:57] LABS: ALBUMIN 3.5 g/dL (3.2-5.0); ALKALINE PHOSPHATASE 111 u/l (38-126); ANION GAP 13 (6-22 (CALC)); BILIRUBIN, TOTAL 0.5 mg/dL (0.0-1.4); BUN 5 mg/dL (9-20); BUN/CREATININE RATIO 10 (12-20 (CALC)); CARBON DIOXIDE 23 mmol/l (22-30); CHLORIDE 100 mmol/l (95-108); CREATININE 0.5 mg/dL (0.7-1.3); ETHYL ALCOHOL 92 mg/dl (0-30); GFR > 60 ML/MIN (>=60 (CALC)); GFR FOR AFR.AMER. > 60 ML/MIN (>=60 (CALC)); POTASSIUM 3.7 mmol/l (3.5-5.1); SGOT/AST 46 u/l (17-59); SODIUM 132 mmol/l (137-146); TOTAL PROTEIN 6.4 g/dL (6.3-8.2)
[2021-02-18 12:10] LABS: MYOGLOBIN 36 ng/mL (0 - 121)
[2021-02-18 17:11] VITALS: BP 98/56
== END 2021-02-18 17:35 | disposition home or self-care (01) ==
LOC: ED 11:07
PROVIDERS: Emergency Medicine
DX: E86.0 Dehydration (principal); F10.10 Alcohol abuse, uncomplicated; I10 Essential (primary) hypertension; F41.9 Anxiety disorder, unspecified; F32.9 Major depressive disorder, single episode, unspecified; G40.909 Epilepsy, unspecified, not intractable, without status epilepticus; I25.2 Old myocardial infarction; F17.210 Nicotine dependence, cigarettes, uncomplicated; Z86.73 Personal history of transient ischemic attack (TIA), and cerebral infarction without residual deficits; Z20.822 Contact with and (suspected) exposure to COVID-19
CPT/HCPCS: J1953